=== PATIENT | male | born 1975 | race Caucasian/White ===

== ENCOUNTER → 2020-06-25 11:01 | Outpatient (CLI) | payer OTHER, SELFPAY ==
--- NOTE | 2020-06-24 16:30 | CYST_PTH ---
PATIENT: JESUS BRODERICK LOC: [facility] U#:[id number] AGE/SX: 49/M ROOM: RE06/25/[address]: Dr. Darren Daniel MD : [id number] BED: DIS: SPEC #: [id number] RECD: 06/25/20 11:53 STATUS: FAVIO AMI #: [id number] LIVIA: 06/24/20 16:[address]: Darren Daniel DEPT: SURGICAL PATHOLOGY RECD BY: Patricia Palacios ENTERED: 06/25/20 11:56 SP TYPE: Cyst OTHR DR: No Primary Care Phys Tissues: CYST Procedures: Surgery Specimen Level III HEADER OPERATION: Removal of cyst RLL PRE-OP DIAGNOSIS: 3 mm tender to touch, increased size x 1-1.5 months TISSUE SUBMITTED: Right lower eyelid lesion MICROSCOPIC DIAGNOSIS Right lower eyelid lesion, biopsy: Benign fibroepithelial polyp. AM:julio 06/26/20 MICROSCOPIC DESCRIPTION Slides are reviewed. GROSS DESCRIPTION Received in fixative is one container labeled with the patient's name and designated right lower lid. The specimen consists of a piece of stringer-white skin measuring 0.3 x 0.1 x 0.1 cm. The entire specimen is submitted in one cassette. / SJ:julio 06/25/20 TC:5 CPT: 96694
--- NOTE | 2021-06-02 12:31 | PCM.BH.PN ---
Progress Note Progress Note: History of Present Illness/Interim History: [] The patient is a 45-year-old male who is seen in follow-up at the [facility] behavioral health IOP program. I last saw the patient about 3 weeks ago and at that time his Adderall XR prescription was increased to 20 mg every morning. In addition gabapentin was added for his restless leg syndrome. Patient states that his mood has been good in the last week or 2 and he is much less irritable in not having anger issues. He feels he is doing really well in the IOP program and has learned valuable skills to help manage his mental health issues. In addition he feels much better since his restless leg syndrome has been treated also. His sleep is much improved and is getting about 6 or 7 hours of sleep at night. He states that he does have some symptoms of restless leg syndrome in the morning at times. He denies any passive thoughts of , suicidal ideation, plan for suicide, homicidal ideation, hallucinations or delusions. He denies any symptoms of hazel. Current Psychiatric Medications: [] Lexapro 20 mg p.o. daily; Adderall XR 20 mg p.o. every morning (x3 weeks now); gabapentin 300 mg, 2 p.o. nightly (x3 weeks now). Mental Status Examination: [] The patient is a 45-year-old tall male who appears normal for stated age and is seen wearing a mask due to the pandemic. He is casually dressed and groomed with good hygiene. He has no psychomotor agitation or retardation. Eye contact is good and speech is normal rate and rhythm and fluent with no pressure. Mood is euthymic. Affect is full and normal. Thought process is goal-directed and organized. Thought content: There is no evidence of thoughts of , suicidal or homicidal ideation, plan for suicide, thoughts of self-harm, hallucinations or delusions. Judgment is intact. Insight is good. Impulsivity is moderate. Diagnoses: [] 1. Bipolar, NOS (F 31.9 2. Attention deficit disorder, combined type 3. Restless leg syndrome 4. Probable CTE 5. Chronic pain in back and extremities 6. Primary support issues Plan: [] The patient will continue the IOP program at [facility] but he may be discharged soon if he continues to do well in the program. He felt safe during the interview and if it anytime he does not feel safe he will let us know or go to the emergency room. The risks, options, possible complications and side effects of the medications were again discussed with the patient and he understands and accepts these. A refill was given on his Adderall XR 20 mg p.o. every morning. His gabapentin was increased to 600 mg p.o. nightly and 300 mg p.o. every morning for his restless leg syndrome. Prescriptions were sent in for both of the prior medications. He will continue to follow-up with his outpatient providers.
== END ==
PROVIDERS: Referring Provider Ophthalmology; Visit Provider Ophthalmology
DX: H02.9 Unspecified disorder of eyelid (principal)
CPT/HCPCS: 88304